=== PATIENT | female | born 1995 | race Caucasian/White ===

== ENCOUNTER 2022-02-21 15:31 | Emergency (ER) | payer MEDICAID, OTHER ==
[~2022-02-21] VITALS: Ht 172.7 cm; Wt 109.0 kg
[2022-02-21 15:39] VITALS: BP 126/76
--- NOTE | 2022-02-21 17:47 | NUR ---
us at bedside
== END 2022-02-21 19:51 | disposition home or self-care (01) ==
LOC: ER 15:31 → EEVIPCON 15:31 → ER 19:51
DX: O20.0 Threatened abortion (principal); Z3A.09 9 weeks gestation of pregnancy
CPT/HCPCS: 36415; 76801; 76817; 84702; 93976; 99284

== ENCOUNTER 2023-03-29 23:48 | Emergency (ER) | payer MEDICAID ==
[~2023-03-29] VITALS: Ht 172.7 cm; Wt 100.0 kg
[2023-03-30 00:14] VITALS: BP 150/99
[2023-03-30 00:53] LABS: URINE HCG NEGATIVE (NEG)
== END 2023-03-30 01:21 ==
LOC: ER 23:49
DX: O9A.211 Injury, poisoning and certain other consequences of external causes complicating pregnancy, first trimester (principal); F31.9 Bipolar disorder, unspecified; Z79.899 Other long term (current) drug therapy
CPT/HCPCS: 81025; 99283